=== PATIENT | female | born 1995 | race African-American/Black ===

== ENCOUNTER → 2023-08-09 07:58 | Outpatient (REF) | payer BC, SELFPAY | LOC: WDC 07:58 | PROVIDERS: ATTENDING PHYSICIAN Student in an Organized Health Care Education/Training Program | DX: N63.22 Unspecified lump in the left breast, upper inner quadrant (principal) | CPT/HCPCS: 76642 ==

== ENCOUNTER → 2023-08-10 15:13 | Outpatient (REF) | payer BC, SELFPAY ==
[2023-08-10 20:10] LABS: ALT (SGPT) 18 U/L (0-35); AST (SGOT) 20 U/L (14-36); Albumin 3.8 g/dl (3.5-5.0); Alkaline Phosphatase 65 U/L (38-126); Blood Urea Nitrogen 13 mg/dl (7-17); Calcium 9.8 mg/dl (8.4-10.2); Carbon Dioxide 30 mmol/L (22-30); Chloride 102 mmol/L (98-107); Glucose 97 mg/dl (70-99); Potassium 3.7 mmol/L (3.5-5.1); Sodium 140 mmol/L (135-145); Total Bilirubin 0.4 mg/dl (0.2-1.3); Total Protein 7.4 g/dl (6.3-8.2); eGFR > 60.00
[2023-08-10 20:26] LABS: Free T4 1.01 ng/dl (0.78-2.19)
[2023-08-10 20:27] LABS: Free T3 3.36 pg/ml (2.77-5.27)
[2023-08-10 20:39] LABS: TSH 0.74 uIU/ml (0.47-4.68)
== END ==
LOC: CLAB 15:13
PROVIDERS: ATTENDING PHYSICIAN Student in an Organized Health Care Education/Training Program
DX: E05.90 Thyrotoxicosis, unspecified without thyrotoxic crisis or storm (principal)
CPT/HCPCS: 36415; 80053; 84439; 84443; 84481

== ENCOUNTER → 2023-09-14 08:37 | Outpatient (REF) | payer BC, SELFPAY | LOC: MRI 3T 08:37 | PROVIDERS: ATTENDING PHYSICIAN Psychiatry & Neurology Neurology; FAMILY PHYSICIAN Student in an Organized Health Care Education/Training Program | DX: G43.E11 Chronic migraine with aura, intractable, with status migrainosus (principal) | CPT/HCPCS: 70553; A9575 ==

== ENCOUNTER → 2023-09-24 06:31 | Outpatient (REF) | payer BC, SELFPAY ==
[2023-09-24 20:58] LABS: Rubella Positive
[2023-09-26 15:37] LABS: Quantiferon Mitogen minus NIL 9.45 IU/mL; Quantiferon NIL 0.02 IU/mL; Quantiferon Plus TB1 minus NIL 0.01 IU/mL (0.00-0.34); Quantiferon Plus TB2 minus NIL 0.01 IU/mL (0.00-0.34); Quantiferon TB Gold Plus Negative (Negative)
[2023-09-27 15:52] LABS: Mumps Virus IgG Negative; Rubeola (Measles) IgG Positive; Varicella Zoster IgG (VZV) Positive
== END ==
LOC: REG 06:31
PROVIDERS: ATTENDING PHYSICIAN Student in an Organized Health Care Education/Training Program
DX: Z11.1 Encounter for screening for respiratory tuberculosis (principal); Z01.84 Encounter for antibody response examination
CPT/HCPCS: 36415; 86480; 86735; 86762; 86765; 86787

== ENCOUNTER 2023-10-25 09:31 | Outpatient (REF) | payer BC, SELFPAY ==
[2023-10-25 10:16] VITALS: BP 108/63; BP_SYST 51
[2023-10-25 10:26] LABS: % Basophils 0.7 % (0-2); % Eosinophils 1.1 % (0-6); % Monocytes 5.5 % (1.7-9.3); % Neutrophils 46.7 % (42.2-75.2); Absolute Eosinophils 0.1 10^3/uL (0-0.7); Absolute Lymphocytes 2.5 10^3/uL (1.2-3.4); Absolute Monocytes 0.3 10^3/uL (0.1-0.6); Absolute Neutrophils 2.6 10^3/uL (1.4-6.5); Hematocrit 38.3 % (37.0-47.0); Hemoglobin 12.5 g/dL (12.0-16.0); Mean Corp Hgb Conc. 32.6 g/dL (33.0-37.0); Mean Corpuscular Hgb 26.4 pg (27.0-31.0); Mean Corpuscular Volume 80.8 fL (81.0-99.0); Mean Platelet Volume 10.6 fL (7.4-10.4); Nucleated Red Blood Cells % 0 %; Platelet Count 345 10^3/uL (130-400); Red Blood Cell Count 4.74 10^6/uL (4.20-5.40); Red Cell Dist. Width 14.8 % (11.5-14.5); White Blood Cell Count 5.5 10^3/uL (4.8-10.8)
[2023-10-25 10:36] LABS: INR 1.06; PT 13.8 Sec (11.4-14.6)
[2023-10-25] MEDS: ATIVAN 1 MG PO (10:37)
[2023-10-25] MEDS: TYLENOL 650 MG PO (12:36)
[2023-10-25 12:45] VITALS: BP 112/63
[2023-10-25 13:00] VITALS: BP 119/77
[2023-10-25 14:00] VITALS: BP 116/72
[2023-10-25 14:12] LABS: Spinal Fluid Glucose 52 mg/dl (40-70); Spinal Fluid Protein 36 mg/dl (12-60)
[2023-10-25 15:14] LABS: CSF Clarity Clear; CSF Color Colorless; CSF Tube # 4; White Cell Count/CSF 1 mm^3 (0-5)
[2023-10-25 15:15] LABS: Red Cell Count/CSF 2 mm^3
[2023-10-28 08:24] LABS: Lyme Disease DNA by PCR Not Detected; Lyme Source CSF
== END 2023-10-25 14:30 | disposition home or self-care (01) ==
LOC: RADI 09:31
PROVIDERS: ATTENDING PHYSICIAN Psychiatry & Neurology Neurology; FAMILY PHYSICIAN Student in an Organized Health Care Education/Training Program
DX: G93.2 Benign intracranial hypertension (principal); Z01.812 Encounter for preprocedural laboratory examination; R51.9 Headache, unspecified; E66.9 Obesity, unspecified
CPT/HCPCS: 36415; 62328; 82945; 84157; 85025; 85610; 87015; 87070; 87205; 87252; 87476; 89051

== ENCOUNTER → 2023-10-30 16:07 | Outpatient (REF) | payer BC, SELFPAY ==
[2023-10-31 20:22] LABS: Hematocrit 40.7 % (37.0-47.0); Hemoglobin 12.9 g/dL (12.0-16.0); Mean Corp Hgb Conc. 31.7 g/dL (33.0-37.0); Mean Corpuscular Hgb 26.9 pg (27.0-31.0); Mean Corpuscular Volume 84.8 fL (81.0-99.0); Mean Platelet Volume 11.2 fL (7.4-10.4); Platelet Count 359 10^3/uL (130-400); Red Cell Dist. Width 15.3 % (11.5-14.5); White Blood Cell Count 4.5 10^3/uL (4.8-10.8)
[2023-10-31 20:28] LABS: ALT (SGPT) 17 U/L (0-35); AST (SGOT) 23 U/L (14-36); Albumin 4.2 g/dl (3.5-5.0); Alkaline Phosphatase 72 U/L (38-126); Blood Urea Nitrogen 9 mg/dl (7-17); Calcium 9.7 mg/dl (8.4-10.2); Carbon Dioxide 20 mmol/L (22-30); Chloride 109 mmol/L (98-107); Glucose 93 mg/dl (70-99); Potassium 4.1 mmol/L (3.5-5.1); Sodium 141 mmol/L (135-145); Total Bilirubin 0.4 mg/dl (0.2-1.3); Total Protein 7.3 g/dl (6.3-8.2); eGFR > 60.00
== END ==
LOC: CLAB 16:07
PROVIDERS: ATTENDING PHYSICIAN Psychiatry & Neurology Neurology
DX: G93.2 Benign intracranial hypertension (principal)
CPT/HCPCS: 36415; 80053; 85027